=== PATIENT | male | born 1940 | race Caucasian/White ===

== ENCOUNTER 2017-08-08 17:58 | Emergency (ER) | payer BC, MEDICARE ==
[~2017-08-08] VITALS: Ht 177.8 cm; Wt 88.0 kg
[2017-08-08] MEDS ORDERED: Lipitor PO (18:10)
--- NOTE | 2017-08-08 18:36 | NUR ---
PATIENT WAS SEEN BY DR SUN FOR MECHANICAL FALL TODAY.
[2017-08-08 18:55] LABS: BASOPHILS # (AUTO) 0.1 K/uL (0.0-8.0); BASOPHILS % (AUTO) 0.7 % (0.0-2.0); EOSINOPHILS # (AUTO) 0.2 K/uL (0.0-0.7); EOSINOPHILS % (AUTO) 2.2 % (0.0-7.0); HEMATOCRIT 41.4 % (36.7-47.1); HEMOGLOBIN 14.5 g/dL (12.5-16.3); LYMPHOCYTES % (AUTO) 19.5 % (20.5-51.5); MEAN CORPUSCULAR HEMOGLOBIN 31.7 uug (23.8-33.4); MEAN CORPUSCULAR HGB CONC 35 g/dL (32.5-36.3); MEAN CORPUSCULAR VOLUME 90.7 fL (73.0-96.2); MONOCYTES # (AUTO) 0.8 K/uL (2.0-10.0); MONOCYTES % (AUTO) 8.2 % (0.0-11.0); NEUTROPHILS # (AUTO) 7.2 K/uL (1.8-8.9); NEUTROPHILS % (AUTO) 69.4 % (38.5-71.5); PLATELET COUNT (AUTO) 237 K/uL (152-348); RED BLOOD CELL COUNT(AUTO) 4.56 MIL/uL (4.06-5.63); WHITE BLOOD COUNT (AUTO) 10.3 K/uL (3.6-10.2)
[2017-08-08 18:59] LABS: CARBON DIOXIDE 29 mmol/L (21-32); CHLORIDE 101 mmol/L (98-107); CREATININE 1.3 mg/dL (0.6-1.3); GLUCOSE 109 mg/dL (74-106); POTASSIUM 3.9 mmol/L (3.5-5.1); UREA NITROGEN, BLOOD 27 mg/dL (7-18)
[2017-08-08] MEDS ORDERED: TDAP DIPH,PERTUSS,TET VAC/PF 0.5 ML DISP.SYRIN IM ONE ×2 (19:00→19:05)
[2017-08-08 19:05] LABS: ALANINE AMINOTRANSFERASE 25 U/L (16-63); ALKALINE PHOSPHATASE 42 U/L (50-136); ASPARTATE AMINOTRANSFERASE 22 U/L (15-37); BILIRUBIN,TOTAL 0.3 mg/dL (0.2-1.0); TOTAL PROTEIN, SERUM 9.1 g/dL (6.4-8.2)
--- NOTE | 2017-08-08 19:14 | NUR ---
REPORT TAKEN FROM DAY SHIFT RN. RESIMING PT CARE AT THIS TIME. PT CURRENTLY DOWN IN CT.
--- NOTE | 2017-08-08 20:16 | NUR ---
PT SITTING AT EDGE OF BED IN POSITION OF COMFORT. FAMILY AT BEDSIDE. NO SIGNS OF DISTRESS NOTED. NO ACTIVE BLEEDING NOTED AT FACIAL WOUND.
--- NOTE | 2017-08-08 21:02 | NUR ---
WOUND CARE COMPLETED PER MD ORDER. LACERATION NOTED ON BRIDGE OF NOSE, BUT NO ACTIVE BLEEDING NOTED. NO DISTRESS NOTED. MD NOTIFIED.
--- NOTE | 2017-08-08 22:15 | NUR ---
Patient discharged to home in stable conditon. Written and verbal after care instructions given. Patient verbalizes understanding of instructions. Pt ambulated from ER w/ steady gait. Accomplanied by family. Pt took all personal belongings
[2017-08-08 22:56] VITALS: BP 146/87
== END 2017-08-08 22:56 | disposition home or self-care (01) ==
LOC: ER 17:59
DX: S02.2XXA Fracture of nasal bones, initial encounter for closed fracture (principal); S01.21XA Laceration without foreign body of nose, initial encounter; W10.9XXA Fall (on) (from) unspecified stairs and steps, initial encounter; Y93.89 Activity, other specified; Y92.89 Other specified places as the place of occurrence of the external cause; Y99.8 Other external cause status
CPT/HCPCS: 36415; 70450; 70486; 85025; 90715; A4663